=== PATIENT | male | born 1990 | race Asian ===

== ENCOUNTER 2017-10-03 09:04 | Emergency (ER) | payer SELFPAY ==
[~2017-10-03] VITALS: Ht 175.3 cm; Wt 73.0 kg
[2017-10-03 09:17] VITALS: BP 126/84
== END 2017-10-03 12:03 | disposition left against medical advice (07) ==
LOC: ER 09:56
DX: R42 Dizziness and giddiness (principal); R07.9 Chest pain, unspecified; Z53.21 Procedure and treatment not carried out due to patient leaving prior to being seen by health care provider